=== PATIENT | female | born 1955 | race Caucasian/White ===

== ENCOUNTER 2017-11-19 12:37 | Emergency (ER) | payer BC ==
[~2017-11-19] VITALS: Ht 165.1 cm; Wt 73.0 kg
[~2017-11-19 12:37] MED LIST: Z.0.NO CURRENT MEDS
[2017-11-19 12:54] VITALS: BP 208/104; PULSE 92; RESP 16; TEMP 98.2; O2SAT 98
[2017-11-19] MEDS ORDERED: LOVA20TA PO (13:03)
[2017-11-19] MEDS ORDERED: LISI20TA PO (13:03)
[2017-11-19] MEDS ORDERED: DICYCLOMINE HCL 20 MG/2 ML VIAL IM ONE (14:00)
[2017-11-19] MEDS ORDERED: SODIUM CHLORIDE 0.9% FLUSH 10 ML FLUSH IV FLUSH PRN (14:00)
[2017-11-19] MEDS ORDERED: FAMOTIDINE 20 MG/2 ML VIAL IV PUSH ONE (14:00)
--- NOTE | 2017-11-19 14:01 | PD ---
HPI Chief Complaint: GI Complaint Time Seen by Provider: 13:57 Travel History International Travel<30 days: No Contact w/Intl Traveler<30days: No Traveled to known affect area: No History of Present Illness HPI Patient presents with complaints of colicky diffuse abdominal pain since early this morning. Mild nausea without vomiting. Reports loose stools that are loose. History of constipation. Denies any urinary symptoms. No history of kidney stones. Taking fluids well. Denies any blood per stool. No history of abdominal surgeries with the exception of a . Postmenopausal. PFSH Past Medical History High Cholesterol: Yes Diminished Hearing: No Hypertension: Yes Influenza Vaccination: No Past Surgical History Section: Yes Social History Alcohol Use: Yes (DAILY BEER) Tobacco Use: No Substance Use: No Allergies-Medications (Allergen,Severity, Reaction): Coded Allergies: penicillin G (Unverified Allergy, Severe, 11/19/17) Reported Meds & Prescriptions Reported Meds & Active Scripts Active Reported Lovastatin 20 Mg Tab 20 Mg PO DAILY Lisinopril-Hctz 20-12.5 Mg Tab 1 Tab PO DAILY No Current Meds (Miscellaneous Medication) Misc Review of Systems General / Constitutional: No: Fever Eyes: No: Visual changes HENT: No: Headaches Cardiovascular: No: Chest Pain or Discomfort Respiratory: No: Shortness of Breath Gastrointestinal: Positive: Nausea, Diarrhea, Abdominal Pain Genitourinary: No: Dysuria Musculoskeletal: No: Pain Skin: No Rash Neurologic: No: Weakness Psychiatric: No: Depression Endocrine: No: Polydipsia Hematologic/Lymphatic: No: Easy Bruising Physical Exam Narrative GENERAL: Well-nourished, well-developed patient. SKIN: Focused skin assessment warm/dry. HEAD: Normocephalic. EYES: No scleral icterus. No injection or drainage. NECK: Supple, trachea midline. No JVD or lymphadenopathy. CARDIOVASCULAR: Regular rate and rhythm without murmurs, gallops, or rubs. RESPIRATORY: Breath sounds equal bilaterally. No accessory muscle use. GASTROINTESTINAL: Abdomen soft, non-tender, nondistended. Benign abdominal exam MUSCULOSKELETAL: No cyanosis, or edema. BACK: Nontender without obvious deformity. No CVA tenderness. Data Data Last Documented VS Vital Signs Date Time Temp Pulse Resp B/P (MAP) Pulse Ox O2 Delivery O2 Flow Rate FiO2 11/19/17 17:02 83 16 146/89 (108) 96 Room Air 11/19/17 12:54 98.2 Orders Orders Complete Blood Count With Diff (11/19/17 13:57) Comprehensive Metabolic Panel (11/19/17 13:57) Lipase (11/19/17 13:57) Lactic Acid (11/19/17 13:57) Urinalysis - C+S If Indicated (11/19/17 13:57) Ct Abd/Pel W Iv Contrast(Rout) (11/19/17 13:57) Iv Access Insert/Monitor (11/19/17 13:57) Ecg Monitoring (11/19/17 13:57) Oximetry (11/19/17 13:57) Sodium Chloride 0.9% Flush (Ns Flush) (11/19/17 14:00) Famotidine Inj (Pepcid Inj) (11/19/17 14:00) Dicyclomine Inj (Bentyl Inj) (11/19/17 14:00) Iohexol 350 Inj (Omnipaque 350 Inj) (11/19/17 15:43) Labs Laboratory Tests Test 11/19/17 14:00 11/19/17 14:05 Urine Collection Type CLEAN CATCH Urine Color YELLOW Urine Turbidity CLEAR Urine pH 5.0 Urine Specific Cranks GREATER/EQUAL 1.030 Urine Protein NEG mg/dL Urine Glucose (UA) NEG mg/dL Urine Ketones NEG mg/dL Urine Occult Blood TRACE Urine Nitrite NEG Urine Bilirubin NEG Urine Urobilinogen 0.2 MG/DL Urine Leukocyte Esterase NEG Urine RBC 4-9 /hpf Urine WBC 0-2 /hpf Urine Squamous Epithelial Cells > 8 /hpf Urine Bacteria FEW /hpf Microscopic Urinalysis Comment CULT NOT INDICATED Urine Collection Time 14:00 White Blood Count 11.3 TH/MM3 Red Blood Count 3.79 MIL/MM3 Hemoglobin 11.9 GM/DL Hematocrit 34.8 % Mean Corpuscular Volume 91.8 FL Mean Corpuscular Hemoglobin 31.3 PG Mean Corpuscular Hemoglobin Concent 34.1 % Red Cell Distribution Width 12.4 % Platelet Count 382 TH/MM3 Mean Platelet Volume 8.3 FL Neutrophils (%) (Auto) 67.7 % Lymphocytes (%) (Auto) 18.3 % Monocytes (%) (Auto) 9.1 % Eosinophils (%) (Auto) 4.4 % Basophils (%) (Auto) 0.5 % Neutrophils # (Auto) 7.6 TH/MM3 Lymphocytes # (Auto) 2.1 TH/MM3 Monocytes # (Auto) 1.0 TH/MM3 Eosinophils # (Auto) 0.5 TH/MM3 Basophils # (Auto) 0.1 TH/MM3 CBC Comment DIFF FINAL Differential Comment Blood Urea Nitrogen 17 MG/DL Creatinine 0.82 MG/DL Random Glucose 97 MG/DL Total Protein 8.1 GM/DL Albumin 4.1 GM/DL Calcium Level 9.4 MG/DL Alkaline Phosphatase 114 U/L Aspartate Amino Transf (AST/SGOT) 38 U/L Alanine Aminotransferase (ALT/SGPT) 54 U/L Total Bilirubin 0.4 MG/DL Sodium Level 137 MEQ/L Potassium Level 3.9 MEQ/L Chloride Level 104 MEQ/L Carbon Dioxide Level 23.7 MEQ/L Anion Gap 9 MEQ/L Estimat Glomerular Filtration Rate 71 ML/MIN Lactic Acid Level 1.8 mmol/L Lipase 135 U/L [facility] Medical Decision Making Medical Screen Exam Complete: Yes Emergency Medical Condition: Yes Differential Diagnosis Nephrolithiasis, gallstones, cholecystitis, SBO, gastroenteritis Narrative Course Assessment and plan discussed with patient at bedside. Patient reports improvement of symptoms with Bentyl. Last 72 hours Impressions Abdomen/Pelvis CT 11/19/17 1357 Signed Impressions: Service Date/Time: Sunday, November 19, 2017 15:29 - CONCLUSION: 1. No acute abnormality is seen. Vinod Montero MD Diagnosis Primary Impression: Gastroenteritis Patient Instructions: General Instructions Additional Instructions: Rest fluids and Motrin. Antiemetic and antispasmodic as needed. Encouraged a bland high-fiber brat diet. Follow-up with PCP. Return to the emergency room with any onset of new symptoms. Med/Other Pt SpecificInfo: Prescription(s) given Scripts Hyoscyamine (Levsin) 0.125 Mg Tab 0.125 MG PO Q4H for Gastrointestinal disorders, #20 TAB 0 Refills Prov: Ubaldo Kathleen MD 11/19/17 Ondansetron (Zofran) 4 Mg Tab 4 MG PO Q6HR Y for NAUSEA OR VOMITING, #15 TAB 0 Refills Prov: Ubaldo Kathleen MD 11/19/17 Disposition: 01 DISCHARGE HOME Ubaldo Kathleen MD Nov 19, 2017 14:01
[2017-11-19 14:12] LABS: AUTOMATED NEUTROPHIL # 7.6 TH/MM3 (1.8-7.7); BASOPHIL # 0.1 TH/MM3 (0-0.2); BASOPHIL % 0.5 % (0.0-2.0); EOSINOPHIL # 0.5 TH/MM3 (0-0.4); EOSINOPHIL % 4.4 % (0.0-4.0); HEMATOCRIT 34.8 % (35.0-46.0); HEMOGLOBIN 11.9 GM/DL (11.6-15.3); LYMPH % 18.3 % (9.0-44.0); LYMPHOCYTE # 2.1 TH/MM3 (1.0-4.8); MEAN CELL VOLUME 91.8 FL (80.0-100.0); MEAN CORPUSCULAR HEMOGLOBIN 31.3 PG (27.0-34.0); MEAN CORPUSCULAR HGB CONC 34.1 % (32.0-36.0); MEAN PLATELET VOLUME 8.3 FL (7.0-11.0); MONO % 9.1 % (0.0-8.0); NEUT % 67.7 % (16.0-70.0); PLATELET COUNT 382 TH/MM3 (150-450); RED BLOOD COUNT 3.79 MIL/MM3 (4.00-5.30); RED CELL DISTRIBUTION WIDTH 12.4 % (11.6-17.2); WHITE BLOOD COUNT 11.3 TH/MM3 (4.0-11.0)
[2017-11-19 14:13] LABS: BILIRUBIN, URINE NEG (NEG); BLOOD, URINE TRACE (NEG); GLUCOSE,URINE NEG (NEG); KETONE, URINE NEG (NEG); NITRITE,URINE NEG (NEG); URINE COLOR YELLOW (YELLW/STRAW); URINE LEUKOCYTE ESTERASE NEG (NEG)
[2017-11-19 14:22] LABS: BACTERIA, URINE FEW /hpf; SQUAMOUS EPITHELIAL CELL URINE > 8 /hpf (0-5); WBC, URINE 0-2 /hpf (0-5)
[2017-11-19 14:34] LABS: CHLORIDE 104 MEQ/L (98-107); SODIUM (NA) 137 MEQ/L (136-145)
[2017-11-19 14:38] LABS: ALBUMIN 4.1 GM/DL (3.4-5.0); BICARBONATE 23.7 MEQ/L (21.0-32.0); BLOOD UREA NITROGEN 17 MG/DL (7-18); CALCIUM 9.4 MG/DL (8.5-10.1); GLUCOSE,RANDOM 97 MG/DL (74-106)
[2017-11-19 14:41] LABS: ALT (GPT) 54 U/L (10-53); AST (GOT) 38 U/L (15-37); CREATININE 0.82 MG/DL (0.50-1.00); GLOMERULAR FILTRATION RATE 71 ML/MIN (>89)
[2017-11-19 14:43] LABS: TOTAL BILIRUBIN ADULT 0.4 MG/DL (0.2-1.0); TOTAL PROTEIN 8.1 GM/DL (6.4-8.2)
[2017-11-19 14:44] LABS: ALKALINE PHOSPHATASE 114 U/L (45-117)
[2017-11-19 14:59] VITALS: BP 140/67; PULSE 74; RESP 18; O2SAT 98
[2017-11-19 15:01] VITALS: RESP 18; O2SAT 97
[2017-11-19] MEDS ORDERED: IOHEXOL 350 MG/ML 10 ML VIAL (for RAD DIAG) IVCONTRAST ONE (15:43)
[2017-11-19 17:02] VITALS: BP 146/89; PULSE 83; RESP 16; O2SAT 96
--- NOTE | 2017-11-19 17:40 | RADRPT ---
EXAM DATE/TIME: 11/19/2017 15:29 [facility] COMPARISON: No previous studies available for comparison. INDICATIONS : Abdominal pain, nausea, vomiting, diarrhea. IV CONTRAST: 75 cc Omnipaque 350 (iohexol) IV ORAL CONTRAST: No oral contrast ingested. RADIATION DOSE: 10.82 CTDIvol (mGy) MEDICAL HISTORY : Hypercholesterolemia. Hypertension. SURGICAL HISTORY : C section ENCOUNTER: Initial ACUITY: 1 day PAIN SCALE: 7/10 LOCATION: diffuse abdomen TECHNIQUE: Volumetric scanning of the abdomen and pelvis was performed. Using automated exposure control and ad justment of the mA and/or kV according to patient size, radiation dose was kept as low as reasonably achievable to obtain optimal diagnostic quality images. DICOM format image data is available electro nically for review and comparison. FINDINGS: LOWER LUNGS: The visualized lower lungs are clear. LIVER: Homogeneous density without lesion. There is no dilation of the biliary tree. No calcified gallston es. SPLEEN: Normal size without lesion. PANCREAS: Within normal limits. KIDNEYS: Normal in size and shape. There is no mass, stone or hydronephrosis. ADRENAL GLANDS: Within normal limits. VASCULAR: There is no aortic aneurysm. BOWEL/MESENTERY: No dilated bowel seen. Much of the colon is decompressed. There is high density material within the c olon likely from prior oral contrast administration for ingestion of high density material such as mi lk of magnesia or Pepto-Bismol. ABDOMINAL WALL: Within normal limits. RETROPERITONEUM: There is no lymphadenopathy. BLADDER: No wall thickening or mass. REPRODUCTIVE: There is a small area of low density seen adjacent to the posterior left lateral aspect of the uterus related to either a normal-sized left ovary or a minimal amount of free fluid. INGUINAL: There is no lymphadenopathy or hernia. MUSCULOSKELETAL: There is degenerative change in the lumbar spine. CONCLUSION: 1. No acute abnormality is seen. Vinod Montero MD on November 19, 2017 at 17:33 Board Certified Radiologist. This report was verified electronically.
[2017-11-19] MEDS ORDERED: ZOFR4TAB PO (17:51)
[2017-11-19] MEDS ORDERED: LEVS0.123 PO (17:51)
== END 2017-11-19 18:08 | disposition home or self-care (01) ==
LOC: PHED 12:37
DX: K52.9 Noninfective gastroenteritis and colitis, unspecified (principal); E78.00 Pure hypercholesterolemia, unspecified; I10 Essential (primary) hypertension
CPT/HCPCS: 74177; 80053; 81001; 83605; 83690; 85025; 96372; 96374; 99285; J0500; Q9967